=== PATIENT | male | born 1955 | race Caucasian/White ===

== ENCOUNTER 2025-02-05 18:32 | Inpatient (IN) | payer MEDICARE, OTHER ==
[~2025-02-05] VITALS: Ht 170.2 cm; Wt 66.2 kg
[2025-02-05] MEDS ORDERED: BISA10SU61 RC (19:36)
[2025-02-05] MEDS ORDERED: SERT50TA PO (19:36)
[2025-02-05] MEDS ORDERED: APIX5TAB PO (19:36)
[2025-02-05] MEDS ORDERED: AMLO10TA59 PO (19:36)
[2025-02-05] MEDS ORDERED: FERR325T28 PO (19:36)
[2025-02-05] MEDS ORDERED: CHOL2000 PO (19:36)
[2025-02-05] MEDS ORDERED: VITA1TAB37 PO (19:36)
[2025-02-05] MEDS ORDERED: NA P133E RC (19:36)
[2025-02-05] MEDS ORDERED: THIA100T74 PO (19:36)
[2025-02-05] MEDS ORDERED: MAGN400O6 PO (19:36)
[2025-02-05] MEDS ORDERED: CYAN-51 PO (19:36)
[2025-02-05] MEDS ORDERED: MAGN400T30 PO (19:36)
[2025-02-05] MEDS ORDERED: MELA5TAB21 PO (19:36)
[2025-02-05] MEDS ORDERED: CRAN500T3 PO (19:36)
[2025-02-05] MEDS ORDERED: IPRA0.2S48 NEB (19:36)
[2025-02-05] MEDS ORDERED: ATOR40TA PO (19:36)
[2025-02-05] MEDS ORDERED: CHOL5POW PO (19:36)
[2025-02-05] MEDS ORDERED: POLY17PO4 PO (19:36)
[2025-02-05 20:54] LABS: PLATELET COUNT (AUTO) 382 K/uL (152-348); RED BLOOD CELL COUNT(AUTO) 4.19 MIL/uL (4.06-5.63); RED CELL DISTRIBUTION WIDTH 19.0 % (12.1-16.2); WHITE BLOOD COUNT (AUTO) 7.2 K/uL (3.6-10.2)
[2025-02-05 21:04] LABS: CREATININE 0.9 mg/dL (0.6-1.3); SODIUM SERUM 140 mmol/L (136-145); UREA NITROGEN, BLOOD 19 mg/dL (7-18)
[2025-02-05 21:09] LABS: ASPARTATE AMINOTRANSFERASE 11 U/L (15-37); ETHANOL < 3 MG/DL (0-10); TOTAL PROTEIN, SERUM 7.3 g/dL (6.4-8.2)
[2025-02-05 21:14] LABS: *BILIRUBIN,URIN NEGATIVE (NEGATIVE); *BLOOD, URINE 2+ (NEGATIVE); *COLOR,URINE YELLOW (YELLOW); *KETONES,URINE NEGATIVE (NEGATIVE); *PROTEIN,URINE 3+ (NEGATIVE); *UROBILINOGEN,URINE 0.2 E.U./dl (NORMAL); LEUKOCYTE ESTERASE ,URINE 3+ (NEGATIVE); NITRITE, URINE POSITIVE (NEGATIVE); UGLUCOSE NEGATIVE (NEGATIVE)
[2025-02-05 21:16] LABS: *CLARITY,URINE CLOUDY (CLEAR)
[2025-02-05 21:25] LABS: SQUAMOUS EPITHELIAL CELL,UR FEW /HPF (NONE SEEN)
[2025-02-05 21:27] LABS: *AMPHETAMINE, URINE NEGATIVE (NEGATIVE); *BARBITURATE, URINE NEGATIVE (NEGATIVE); *BENZODIAZEPINE, URINE NEGATIVE (NEGATIVE); *CANNABINOID, URINE POSITIVE (NEGATIVE); *COCCAINE, URINE NEGATIVE (NEGATIVE); *OPIATE, URINE NEGATIVE (NEGATIVE); *PHENCYCLIDINE SCREEN,URINE NEGATIVE (NEGATIVE); FENTANYL, URINE NEGATIVE (NEGATIVE)
[2025-02-05] MEDS ORDERED: CEFTRIAXONE /D5W 50ML IVPB **ER PYXIS IV ONE (21:44)
[2025-02-05] MEDS: CEFTRIAXONE 1 G in IV DEXTROSE 5% 50 ML IV ONE (21:53)
[2025-02-05] MEDS ORDERED: IV NS 1000 ML 1,000 ML IV PRN (22:00)
[2025-02-05] MEDS ORDERED: FLEET ENEMA 133 ML BOTTLE RC PRN (22:00)
[2025-02-05] MEDS ORDERED: IPRATROPIUM BROMIDE 0.5 MG/2.5 ML NEBU NEB PRN (22:00)
[2025-02-05] MEDS ORDERED: BISACODYL 10 MG SUPP.RECT RC PRN (22:00)
[2025-02-05] MEDS ORDERED: MAGNESIUM HYDROXIDE 30 ML LIQUID UDC PO PRN ×2 (22:00)
[2025-02-05] MEDS ORDERED: ONDANSETRON 4 MG/2 ML VIAL IV PRN (22:00)
[2025-02-06 00:45] VITALS: BP 105/78
[2025-02-06] MEDS ORDERED: OLANZAPINE 10 MG VIAL IM PRN (02:15)
[2025-02-06] MEDS: PANTOPRAZOLE SODIUM 40 MG TABLET.DR PO SCH (07:00)
[2025-02-06] MEDS: ACETAMINOPHEN 325 MG TABLET PO PRN (08:34)
[2025-02-06] MEDS: CYANOCOBALAMIN 1,000 MCG TABLET PO SCH (08:36)
[2025-02-06] MEDS: THIAMINE HCL 100 MG TABLET PO SCH (08:36)
[2025-02-06] MEDS: ENOXAPARIN SODIUM 40 MG/0.4 ML DISP.SYRIN SQ SCH (08:36)
[2025-02-06] MEDS: CHOLECALCIFEROL 1,000 UNIT TABLET PO SCH (08:36)
[2025-02-06] MEDS: SERTRALINE HCL 50 MG TABLET PO SCH (08:36)
[2025-02-06] MEDS: CHOLESTYRAMINE/ASPARTAME (LIGHT) 4 G/PKT PACKET PO SCH (08:37)
[2025-02-06] MEDS: MAGNESIUM OXIDE 400 MG TABLET PO SCH (08:39)
[2025-02-06] MEDS: MIRALAX 17 GM POWD.PACK PO SCH (08:39)
[2025-02-06] MEDS: VITAMIN B COMPLEX 1 TABLET PO SCH (08:39)
[2025-02-06] MEDS: AMLODIPINE 10 MG TABLET PO SCH (08:41)
[2025-02-06] MEDS ORDERED: Medication Not On Formulary EA (Cranberry Extract (Cranberry) 500 MG) PO SCH (09:00)
[2025-02-06] MEDS ORDERED: OXYC5TAB3 PO (10:29)
[2025-02-06] MEDS ORDERED: METO-356 PO (10:29)
[2025-02-06] MEDS ORDERED: POTA-88 PO (10:29)
[2025-02-06 11:35] VITALS: BP 132/89; TEMP 98.2; O2SAT 100
[2025-02-06] MEDS: FERROUS SULFATE 325 MG TABEC PO SCH (13:00)
[2025-02-06 15:54] VITALS: BP 128/93; TEMP 98.6; O2SAT 98
[2025-02-06] MEDS: APIXABAN 5 MG TABLET PO SCH (16:28)
[2025-02-06 19:25] VITALS: BP 140/87; TEMP 98.6; O2SAT 96
[2025-02-06] MEDS: MELATONIN 3 MG TABLET PO SCH (21:00)
[2025-02-06] MEDS ORDERED: MELATONIN 3 MG TABLET PO SCH ×2 (21:00)
[2025-02-06] MEDS ORDERED: CEFTRIAXONE 1 G in IV DEXTROSE 5% 50 ML IV SCH (21:00)
[2025-02-06] MEDS: ATORVASTATIN 40 MG TABLET PO SCH (21:00)
[2025-02-07 06:11] VITALS: BP 138/95; TEMP 98.6; O2SAT 93
[2025-02-07 07:01] LABS: PLATELET COUNT (AUTO) 342 K/uL (152-348); RED BLOOD CELL COUNT(AUTO) 4.21 MIL/uL (4.06-5.63); RED CELL DISTRIBUTION WIDTH 19.4 % (12.1-16.2); WHITE BLOOD COUNT (AUTO) 9.9 K/uL (3.6-10.2)
[2025-02-07 07:16] LABS: CREATININE 0.7 mg/dL (0.6-1.3); SODIUM SERUM 143 mmol/L (136-145); UREA NITROGEN, BLOOD 15 mg/dL (7-18)
[2025-02-07] MEDS: METOPROLOL SUCCINATE XL 25 MG TAB.SR.24H PO SCH (08:12)
[2025-02-07] MEDS ORDERED: CEPH500C2 PO (10:14)
[2025-02-07] MEDS: MAGNESIUM OXIDE 400 MG TABLET PO ONE (10:29)
[2025-02-07 11:34] VITALS: BP 130/92; TEMP 97.9; O2SAT 100
[2025-02-07 15:35] VITALS: BP 149/90; TEMP 97.5; O2SAT 100
[2025-02-07] MEDS: TRAMADOL HCL 50 MG TABLET PO PRN (16:44)
[2025-02-07 19:00] VITALS: BP 126/88; TEMP 98.3; O2SAT 98
[2025-02-08 08:01] VITALS: BP 126/88
== END 2025-02-08 11:27 | DRG 699 ==
LOC: ER 18:40 → MEDSURG3 21:58
PROVIDERS: ADMIT Nurse Practitioner Family; ATTEND Nurse Practitioner Family
DX: T83.511A Infection and inflammatory reaction due to indwelling urethral catheter, initial encounter (principal); N39.0 Urinary tract infection, site not specified; E44.1 Mild protein-calorie malnutrition; F03.93 Unspecified dementia, unspecified severity, with mood disturbance; F03.94 Unspecified dementia, unspecified severity, with anxiety; F31.4 Bipolar disorder, current episode depressed, severe, without psychotic features; Z16.12 Extended spectrum beta lactamase (ESBL) resistance; Z66 Do not resuscitate; J44.89 Other specified chronic obstructive pulmonary disease; E78.5 Hyperlipidemia, unspecified; F12.10 Cannabis abuse, uncomplicated; N40.0 Benign prostatic hyperplasia without lower urinary tract symptoms; R26.2 Difficulty in walking, not elsewhere classified; Z85.46 Personal history of malignant neoplasm of prostate; Z79.01 Long term (current) use of anticoagulants; K70.30 Alcoholic cirrhosis of liver without ascites; I10 Essential (primary) hypertension; F10.10 Alcohol abuse, uncomplicated; D64.9 Anemia, unspecified; R79.89 Other specified abnormal findings of blood chemistry; Z79.899 Other long term (current) drug therapy; I73.9 Peripheral vascular disease, unspecified; Z87.820 Personal history of traumatic brain injury; Z53.20 Procedure and treatment not carried out because of patient's decision for unspecified reasons; R94.31 Abnormal electrocardiogram [ECG] [EKG]; B96.20 Unspecified Escherichia coli [E. coli] as the cause of diseases classified elsewhere; Y73.8 Miscellaneous gastroenterology and urology devices associated with adverse incidents, not elsewhere classified; Y92.129 Unspecified place in nursing home as the place of occurrence of the external cause
CPT/HCPCS: 36415; 71045; 83735; 84100; 84443; 85025; 87077; 87086; A4606; A4663; G0378; G0480; J0696